=== PATIENT | male | born 1990 | race Caucasian/White ===

== ENCOUNTER → 2019-03-23 | Outpatient (CLI) | payer OTHER ==
--- NOTE | 2019-03-23 16:42 | REP ---
Clinical: Trauma. Technique: AP, lateral, bilateral oblique views left foot . Findings: The osseous structures and joint spaces are intact and normal. There is no evidence for acute fracture or dislocation. Surrounding soft tissues are unremarkable. No subcutaneous emphysema or radiodense foreign body. Impression: Normal left foot series . No acute fracture or dislocation. Electronically Signed by Glenn Weston MD 03/23/2019 04:33 P
== END ==
LOC: M WUC 16:21
PROVIDERS: ATTEND Nurse Practitioner Family
DX: M79.89 Other specified soft tissue disorders (principal)

== ENCOUNTER → 2019-09-10 | Outpatient (REF) | payer OTHER ==
[2019-09-10 17:27] LABS: INFLUENZA A AMPLIFICATION NEGATIVE (NEGATIVE); INFLUENZA B AMPLIFICATION NEGATIVE (NEGATIVE)
== END ==
LOC: M LAB REF 16:36
PROVIDERS: ATTEND Physician Assistant Medical
DX: J11.1 Influenza due to unidentified influenza virus with other respiratory manifestations (principal)

== ENCOUNTER → 2019-09-30 | Outpatient (CLI) | payer OTHER ==
--- NOTE | 2019-10-02 23:09 | SLEEPCENT ---
DATE OF PROCEDURE: 09/30/2019 ORDERED BY: Jennifer Correa NP Nocturnal polysomnography was performed for evaluation of sleep physiology in this patient with a history of snoring paroxysms and nonrestorative sleep. 6 hours and 58 minutes of data were reviewed. There were 293 minutes and sleep identified. Sleep latency was prolonged 29.5 minutes. REM latency was prolonged at 131 minutes. Sleep architecture showed fragmentation and poor progression. Overall sleep efficiency was 70.8%. There were two REM cycles noted. The electrocardiogram showed a sinus rhythm with an average heart rate of 62 beats per minute. EEG showed reasonably normal waveforms for awake and sleep. There were 38 respiratory events identified of 10 seconds in duration or greater for an apnea-hypopnea index of 7.8. The events were primarily obstructive, not exclusive to sleep stage nor body posture. Arousals from respiratory events occurred 3.5 times per hour. No significant oxygen desaturations were seen. Limb activity was noted in the EMG leads. Limb movement arousal index was 5.9. There were some spontaneous arousals. No episodes of clear bruxism were seen. IMPRESSION Obstructive sleep apnea syndrome (G47.33). Apnea-hypopnea index 7.8. RECOMMENDATIONS The patient should be encouraged to return to the sleep disorder center for pressure therapy. In the interim alcohol and sedative avoidance should be practiced and caution exercised during the operation of motor vehicles.
== END ==
LOC: M SLEEP 19:51
PROVIDERS: ATTEND Nurse Practitioner Adult Health
DX: G47.33 Obstructive sleep apnea (adult) (pediatric) (principal)

== ENCOUNTER → 2019-11-05 | Outpatient (CLI) | payer OTHER ==
--- NOTE | 2019-11-06 11:47 | SLEEPCENT ---
DATE OF STUDY: 11/05/2019 ORDERING PROVIDER: CATHLEEN Mckee Nocturnal polysomnography was performed for the titration of pressure therapy in this patient with obstructive sleep apnea syndrome. Apnea-hypopnea index 7.8. For testing, a [employer] Quattro full face mask of small size was used. 4 cm of water pressure were applied to the circuit, and the lights were extinguished. 7 hours of data were reviewed. There were 365.5 minutes of sleep identified. Sleep latency was mildly prolonged at 30.5 minutes. Rapid eye movement (REM) latency was normal at 85 minutes. Sleep architecture was good with four REM cycles. Overall sleep efficiency was 88.1%. The patient's electrocardiogram showed a sinus rhythm with an average heart rate of 56 beats per minute. Electroencephalogram (EEG) showed normal waveforms for awake and sleep. Respiratory events were fully palliated with continuous positive airway pressure (CPAP) at a pressure of +7, and remaining measures of sleep physiology were reasonably normal. IMPRESSION: Obstructive sleep apnea syndrome (G47.33). RECOMMENDATION: Nightly use of pressure therapy, 7 cm of water.
== END ==
LOC: M SLEEP 20:00
PROVIDERS: ATTEND Nurse Practitioner Adult Health
DX: G47.33 Obstructive sleep apnea (adult) (pediatric) (principal)

== ENCOUNTER → 2020-03-26 | Outpatient (CLI) | payer OTHER ==
--- NOTE | 2020-04-06 06:28 | SLEEPCENT ---
DATE: 03/26/2020 ORDERED BY: Jennifer Correa NP Nocturnal polysomnography was performed for the titration of pressure therapy in this patient with obstructive sleep apnea syndrome. For testing, the patient was fit with a [employer] Simplus full face mask of small size, and 4 cm of water pressure were applied to the circuit and the lights were extinguished. Seven hours and 16 minutes of data were reviewed. There was 396 minutes of sleep identified. Sleep latency was good with three REM cycles. Overall sleep efficiency was 92.6%. The electrocardiogram showed a sinus rhythm with intraventricular conduction delay. Average heart rate was 52 beats per minute. EEG showed normal waveforms for wake and sleep. Respiratory events were fully palliated with CPAP at a pressure of +7. Some mild snoring appreciated but no obstructive respiratory events thereafter. IMPRESSION: Obstructive sleep apnea syndrome (G47.33). RECOMMENDATION: Nightly use of pressure therapy at 7 cm of water was sufficient to overcome the patient's obstructive respiratory events. MTDD
== END ==
LOC: M SLEEP 20:00
PROVIDERS: ATTEND Nurse Practitioner Adult Health
DX: G47.33 Obstructive sleep apnea (adult) (pediatric) (principal)

== ENCOUNTER → 2020-07-07 | Outpatient (CLI) | payer SELFPAY | LOC: M LABSMTC 14:01 | PROVIDERS: ATTEND Pediatrics | DX: Z20.828 Contact with and (suspected) exposure to other viral communicable diseases (principal) ==

== ENCOUNTER → 2020-10-08 | Outpatient (REF) | payer OTHER | LOC: M LAB REF 11:16 | PROVIDERS: ATTEND Internal Medicine | DX: R53.83 Other fatigue (principal) ==

== ENCOUNTER → 2020-10-23 | Outpatient (REF) | payer OTHER ==
[2020-10-23 13:25] LABS: LUTEINIZING HORMONE 2.1 mIU/mL (1.5-9.3); PROLACTIN 6.3 NG/ML (2.1-17.7)
== END ==
LOC: M LAB REF 12:08
PROVIDERS: ATTEND Internal Medicine
DX: N52.9 Male erectile dysfunction, unspecified (principal)

== ENCOUNTER → 2021-01-18 | Outpatient (REF) | payer OTHER ==
[2021-01-18 10:30] LABS: SEMEN APPEARANCE OPAQUE (OPAQUE); SEMEN VISCOSITY LIQUID (LIQUID); SPERM CONCENTRATION 101.7 M/ml (>=15.0); WBC CONCENTRATION <=1 M/ml (<=1 M/ml)
== END ==
LOC: M LAB REF 10:26
PROVIDERS: ATTEND Advanced Practice Midwife
DX: Z31.41 Encounter for fertility testing (principal)

== ENCOUNTER 2023-10-12 05:02 | Emergency (ER) | payer OTHER ==
[~2023-10-12] VITALS: Ht 167.6 cm; Wt 129.6 kg
[2023-10-12 05:02] VITALS: BP 144/97; TEMP 97.6; O2SAT 97
[2023-10-12] MEDS ORDERED: CEPH500C (05:12)
[2023-10-12] MEDS ORDERED: DOXY100T27 (05:12)
[2023-10-12 05:43] LABS: BASO # 0.1 10^3/uL (0.0-0.2); BASO % 0.6 % (0.0-1.0); EOS # 0.2 10^3/uL (0.0-0.5); EOS % 1.9 % (0.0-3.0); HEMATOCRIT 44.1 % (42.0-52.0); HEMOGLOBIN 14.7 g/dl (13.5-17.5); LYMPH # 2.9 10^3/uL (1.5-5.0); LYMPH % 25.5 % (24.0-44.0); MEAN CORPUSCULAR HEMOGLOBIN 29.9 pg (27.0-33.0); MEAN CORPUSCULAR HGB CONC 33.3 g/dl (32.0-36.5); MEAN CORPUSCULAR VOLUME 89.8 fl (80.0-96.0); MONO # 0.8 10^3/uL (0.0-0.8); MONO % 7.3 % (2.0-8.0); NEUTROPHILS # 7.3 10^3/uL (1.5-8.5); PLATELET COUNT, AUTOMATED 324 10^3/uL (150-450); RED BLOOD COUNT 4.91 10^6/uL (4.30-6.10); WHITE BLOOD COUNT 11.4 10^3/uL (4.0-10.0)
[2023-10-12 06:08] LABS: BLOOD UREA NITROGEN 18 MG/DL (9-23); CALCIUM LEVEL 9.2 MG/DL (8.5-10.1); CARBON DIOXIDE LEVEL 27 MMOL/L (20-31); CHLORIDE LEVEL 105 MMOL/L (98-107); CREATININE FOR GFR 0.76 MG/DL (0.70-1.30); GLOMERULAR FILTRATION RATE > 60.0 (>60); GLUCOSE, FASTING 124 MG/DL (60-100); POTASSIUM SERUM 4.1 MMOL/L (3.5-5.1); SODIUM LEVEL 137 MMOL/L (136-145)
[2023-10-12] MEDS: DALBAVANCIN 1,500 MG in D5W 250 ML IV ONE (06:16)
[2023-10-12 06:21] LABS: PROCALCITONIN <0.04 ng/ml
== END 2023-10-12 06:49 | disposition home or self-care (01) ==
LOC: M ED 05:02
DX: L03.116 Cellulitis of left lower limb (principal)
CPT/HCPCS: 80048; 83605; 84145; 85025; 86140; 87040; 96365; 99283; J0875

== ENCOUNTER → 2024-04-06 | Outpatient (REF) | payer OTHER ==
[~2024-04-06] MED LIST: CEPH500C; DOXY100T27
== END ==
LOC: M LAB REF 19:35
PROVIDERS: ATTEND Physician Assistant
DX: R05.9 Cough, unspecified (principal)

== ENCOUNTER 2024-08-22 19:21 | Emergency (ER) | payer OTHER ==
[~2024-08-22] VITALS: Ht 167.6 cm; Wt 131.0 kg
[2024-08-22 19:25] VITALS: TEMP 98.2
[2024-08-22] MEDS: ONDANSETRON 4MG 2ML VIAL IV ONE (20:35)
[2024-08-22] MEDS: MIDAZOLAM INJ 2MG/2ML VIAL IV PRN (20:36)
[2024-08-22] MEDS: fentaNYL 100 MCG/2 ML INJECTION IV ONE (20:38)
[2024-08-22] MEDS: NS (Normal Saline) 0.9% 1,000 ML IV SCH (20:40)
[2024-08-22] MEDS: propofoL 200 MG/20 ML VIAL IV.PROC PRN (20:40)
[2024-08-22 20:55] VITALS: BP 135/67; O2SAT 99
[2024-08-22 21:38] VITALS: O2SAT 100
[2024-08-22] MEDS: PERCOCET 5MG/325MG TAB PO ONE (21:55)
[2024-08-22] MEDS: OXYCODONE/APAP 5MG/325MG(HOME DOSE PACK) PO ONE (22:00)
== END 2024-08-22 22:49 | disposition home or self-care (01) ==
LOC: M ED 19:21
DX: S43.015A Anterior dislocation of left humerus, initial encounter (principal); W01.10XA Fall on same level from slipping, tripping and stumbling with subsequent striking against unspecified object, initial encounter; Y92.410 Unspecified street and highway as the place of occurrence of the external cause; Y93.9 Activity, unspecified; Y99.9 Unspecified external cause status
CPT/HCPCS: 23655; 73020; 73030; 73060; 80047; 93041; 94760; 96361; 96374; 99152; 99153; 99291; J2250; J2405; J3010

== ENCOUNTER → 2024-08-23 | Outpatient (CLI) | payer OTHER | LOC: M SOG 11:26 | PROVIDERS: ATTEND Orthopaedic Surgery | DX: M21.822 Other specified acquired deformities of left upper arm (principal) ==

== ENCOUNTER → 2024-08-28 | Outpatient (CLI) | payer OTHER | LOC: M PLAIMG 10:59 | PROVIDERS: ATTEND Orthopaedic Surgery | DX: S43.015A Anterior dislocation of left humerus, initial encounter (principal); S42.292A Other displaced fracture of upper end of left humerus, initial encounter for closed fracture; S43.492A Other sprain of left shoulder joint, initial encounter; X58.XXXA Exposure to other specified factors, initial encounter; Y92.9 Unspecified place or not applicable; Y93.9 Activity, unspecified; Y99.9 Unspecified external cause status ==

== ENCOUNTER → 2024-09-06 | Outpatient (CLI) | payer OTHER | LOC: M SOG 07:49 | PROVIDERS: ATTEND Orthopaedic Surgery | DX: S43.015A Anterior dislocation of left humerus, initial encounter (principal); M25.512 Pain in left shoulder ==

== ENCOUNTER 2024-09-11 10:15 | Outpatient (RCR) | payer OTHER | END 2024-09-13 | LOC: M PT 10:15 | PROVIDERS: ATTEND Orthopaedic Surgery | DX: S43.015A Anterior dislocation of left humerus, initial encounter (principal); M25.522 Pain in left elbow; X58.XXXA Exposure to other specified factors, initial encounter; Y92.9 Unspecified place or not applicable; Y93.9 Activity, unspecified; Y99.9 Unspecified external cause status ==

== ENCOUNTER 2024-10-03 08:27 | Outpatient (RCR) | payer OTHER | END 2024-10-14 | LOC: M PT 08:27 | PROVIDERS: ATTEND Orthopaedic Surgery | DX: S43.015A Anterior dislocation of left humerus, initial encounter (principal); M25.522 Pain in left elbow; X58.XXXA Exposure to other specified factors, initial encounter; Y92.9 Unspecified place or not applicable; Y93.9 Activity, unspecified; Y99.9 Unspecified external cause status ==

== ENCOUNTER → 2024-10-30 | Outpatient (CLI) | payer OTHER | LOC: M RAD 10:05 | PROVIDERS: ATTEND Orthopaedic Surgery | DX: S44.32XA Injury of axillary nerve, left arm, initial encounter (principal); M54.12 Radiculopathy, cervical region; X58.XXXA Exposure to other specified factors, initial encounter; Y92.9 Unspecified place or not applicable; Y93.9 Activity, unspecified; Y99.9 Unspecified external cause status ==

== ENCOUNTER → 2024-11-13 | Outpatient (RCR) | payer OTHER | LOC: M PT 10-30 09:04 | PROVIDERS: ATTEND Orthopaedic Surgery | DX: S43.015A Anterior dislocation of left humerus, initial encounter (principal); M25.552 Pain in left hip; X58.XXXA Exposure to other specified factors, initial encounter; Y99.9 Unspecified external cause status; Y92.9 Unspecified place or not applicable; Y93.9 Activity, unspecified ==

== ENCOUNTER 2025-01-29 10:00 | Outpatient (RCR) | payer OTHER | END 2025-02-13 | LOC: M PT 10:00 | PROVIDERS: ATTEND Orthopaedic Surgery | DX: S43.015A Anterior dislocation of left humerus, initial encounter (principal) ==